=== PATIENT | female | born 1965 | race Caucasian/White ===

== ENCOUNTER 2017-07-04 20:44 | Emergency (ER) | payer OTHER ==
[~2017-07-04] VITALS: Ht 170.2 cm; Wt 56.8 kg
[~2017-07-04 20:44] MED LIST: LACT1CAP26 PO; ONDA4TAB12 PO; PANT-47 PO; PHEN-873 PO; VENL150T3 PO
[2017-07-04 20:50] VITALS: BP 125/81
[2017-07-04 21:07] LABS: CLARITY,URINE CLOUDY (Clear); COLOR,URINE AMBER (Yellow); GLUCOSE, URINE NEGATIVE (Neg); KETONES,URINE TRACE mg/dl (Neg); LEUKOCYTE ESTERASE ,URINE SMALL (Neg); NITRITES, URINE POSITIVE (Neg); OCCULT BLOOD,URINE TRACE-LYSED (Neg); PROTEIN,URINE NEGATIVE (Neg)
[2017-07-04 21:12] LABS: UA COLLECTION TYPE CLN CATCH MIDSTREAM
[2017-07-04 21:18] LABS: BACTERIA,URINE 4+ /HPF (Neg); MUCUS STRANDS NONE SEEN /LPF (Neg); RBC,URINE NONE SEEN /HPF (0-2); SQUAMOUS EPITHELIAL CELL,UR FEW /LPF (FEW); WBC,URINE 20-30 /HPF (0-4)
[2017-07-04] MEDS ORDERED: CEPH-571 PO (21:25)
[2017-07-04] MEDS ORDERED: DOXY100C43 PO (21:25)
== END 2017-07-04 21:30 | disposition home or self-care (01) ==
LOC: ER 20:44
DX: N39.0 Urinary tract infection, site not specified (principal); M81.0 Age-related osteoporosis without current pathological fracture; Z98.51 Tubal ligation status; Z91.018 Allergy to other foods; Z88.1 Allergy status to other antibiotic agents; Z95.1 Presence of aortocoronary bypass graft
CPT/HCPCS: 81001; 87077; 87088; 87186; 99284

== ENCOUNTER 2018-11-11 11:09 | Emergency (ER) | payer MEDICAID ==
[~2018-11-11] VITALS: Ht 167.6 cm; Wt 53.0 kg
[~2018-11-11 11:09] MED LIST changes: +CEPH-571 PO; +PHEN-786 PO; -PHEN-873 PO; +TRAM50TA2 PO
[2018-11-11] MEDS ORDERED: HYDROcodone/acetaminophen 5mg/325mg tablet PO STA (11:33)
[2018-11-11] MEDS ORDERED: ketorolac tromethamine 15mg/ml inj. IM ONE (12:10)
[2018-11-11] MEDS ORDERED: METH-360 PO (13:35)
[2018-11-11] MEDS ORDERED: HYDR-4353 PO (13:35)
[2018-11-11 14:11] VITALS: BP 110/68
== END 2018-11-11 14:11 | disposition home or self-care (01) ==
LOC: ER 11:10
DX: M25.511 Pain in right shoulder (principal); R20.0 Anesthesia of skin; F17.210 Nicotine dependence, cigarettes, uncomplicated; Z98.51 Tubal ligation status; Z98.890 Other specified postprocedural states; Z88.8 Allergy status to other drugs, medicaments and biological substances; Z79.2 Long term (current) use of antibiotics; Z79.899 Other long term (current) drug therapy
CPT/HCPCS: 73010; 96372; 99283; J1885

== ENCOUNTER 2019-10-30 07:28 | Emergency (ER) | payer MEDICAID ==
[~2019-10-30] VITALS: Ht 170.2 cm; Wt 54.4 kg
[~2019-10-30 07:28] MED LIST changes: +METH-360 PO; -TRAM50TA2 PO
[2019-10-30] MEDS ORDERED: LORazepam 2 mg/ml vial IV ONE (09:00)
[2019-10-30] MEDS ORDERED: famotidine/PF 10 mg/ml inj IV ONE (09:00)
[2019-10-30] MEDS ORDERED: normal saline 1000ML IV soln IVB ONE (09:00)
[2019-10-30] MEDS ORDERED: ondansetron/PF 4mg/2ml inj IV ONE (09:00)
[2019-10-30] MEDS ORDERED: folic acid 1mg/0.2ml inj IV ONE (09:00)
[2019-10-30] MEDS ORDERED: thiamine 100mg/ml 2ml inj. IV ONE (09:00)
[2019-10-30] MEDS ORDERED: dextrose 50%-water 50ml dispensing syringe IV ONE (09:13)
--- NOTE | 2019-10-30 09:20 | NUR ---
Patient given orange juice and sandwich for low blood glucose of 38 mg/dL.
[2019-10-30 09:23] LABS: BASOPHILS # (AUTO) 0.1 X10'3 (0-0.2); BASOPHILS % (AUTO) 0.8 % (0-1); EOSINOPHILS % (AUTO) 0.2 % (0-6); HEMATOCRIT 46.7 % (35.0-45.0); HEMOGLOBIN 15.7 g/dl (12.0-16.0); LYMPHOCYTES # (AUTO) 1.3 X10'3 (1.1-4.8); LYMPHOCYTES % (AUTO) 14.9 % (21-51); MEAN CORPUSCULAR HEMOGLOBIN 32.6 PG (27.0-31.0); MEAN CORPUSCULAR HGB CONC 33.5 g/dL (33.0-36.5); MEAN CORPUSCULAR VOLUME 97.3 FL (78-98); MEAN PLATELET VOLUME 9.4 FL (7.4-10.4); MONOCYTES # (AUTO) 0.6 X10'3 (0-0.9); MONOCYTES % (AUTO) 7.1 % (2-12); NEUTROPHILS # (AUTO) 6.7 X10'3 (1.8-7.7); PLATELET COUNT 143 X10'3 (140-440); RED CELL DISTRIBUTION WIDTH 14.8 % (11.5-14.5); WHITE BLOOD COUNT 8.7 X10'3 (4.5-11.0)
[2019-10-30 09:32] LABS: ALANINE AMINOTRANSFERASE 59 U/L (12-78); ALBUMIN/GLOBULIN RATIO 1.4 (1.1-1.5); ALKALINE PHOSPHATASE 65 IU/L (46-116); ANION GAP 20 (8-16); ASPARTATE AMINO TRANSFERASE 83 U/L (10-37); BILIRUBIN,TOTAL 0.4 MG/DL (0.1-1.0); BLOOD UREA NITROGEN 10 MG/DL (7-18); BUN/CREATININE RATIO 12.3 (6.6-38.0); CALCIUM 8.9 MG/DL (8.5-10.1); CHLORIDE 104 MMOL/L (99-107); CREATININE 0.81 MG/DL (0.40-0.90); ETHANOL 0.175 GM/DL (0.0-0.010); POTASSIUM 3.3 MMOL/L (3.5-5.1); SODIUM 144 MMOL/L (135-145); TOTAL CARBON DIOXIDE 20.3 MMOL/L (24-32); TOTAL PROTEIN 6.9 G/DL (6.4-8.2); eGFR 73 ML/MIN
[2019-10-30 09:39] LABS: GLUCOSE 50 MG/DL (70-104)
[2019-10-30] MEDS ORDERED: magnesium 2GM in 50ml NS 50 ML IV ONE (09:45)
[2019-10-30] MEDS ORDERED: potassium Cl 10 mEq/100mL bag IV ONE (09:45)
[2019-10-30] MEDS ORDERED: LORA-269 PO (09:50)
[2019-10-30] MEDS ORDERED: GABA300C PO (09:50)
[2019-10-30 11:21] VITALS: BP 130/73
== END 2019-10-30 11:22 | disposition home or self-care (01) ==
LOC: ER 07:29
DX: F10.129 Alcohol abuse with intoxication, unspecified (principal); E87.6 Hypokalemia; E16.2 Hypoglycemia, unspecified; M81.0 Age-related osteoporosis without current pathological fracture; Z98.51 Tubal ligation status; Z90.89 Acquired absence of other organs; Z98.890 Other specified postprocedural states; Z88.8 Allergy status to other drugs, medicaments and biological substances; Z79.899 Other long term (current) drug therapy
CPT/HCPCS: 36415; 80053; 80320; 82948; 85025; 85610; 93005; 96365; 96368; 96375; 99284; J2060; J2405; J3411; J3475; J3480; J3490; J7030

== ENCOUNTER 2020-06-27 09:42 | Outpatient (CLI) | payer MEDICAID ==
[~2020-06-27] VITALS: Ht 170.2 cm; Wt 54.4 kg
[~2020-06-27 09:42] MED LIST changes: +GABA300C PO; +LORA-269 PO
[2020-06-27] MEDS ORDERED: MELA10TA PO (10:44)
[2020-06-27] MEDS ORDERED: METH-360 PO (10:44)
[2020-06-27] MEDS ORDERED: SERT50TA PO (10:44)
[2020-06-27] MEDS ORDERED: ASCO500C18 PO (10:44)
[2020-06-27 11:02] LABS: BASOPHILS % (AUTO) 0.9 % (0-1); EOSINOPHILS # (AUTO) 0.1 X10'3 (0-0.9); EOSINOPHILS % (AUTO) 1.2 % (0-6); LYMPHOCYTES # (AUTO) 1.9 X10'3 (1.1-4.8); LYMPHOCYTES % (AUTO) 34.1 % (21-51); MEAN CORPUSCULAR HEMOGLOBIN 32.1 PG (27.0-31.0); MEAN CORPUSCULAR HGB CONC 33.3 g/dL (33.0-36.5); MEAN CORPUSCULAR VOLUME 96.5 FL (78-98); MEAN PLATELET VOLUME 10.2 FL (7.4-10.4); MONOCYTES # (AUTO) 0.4 X10'3 (0-0.9); MONOCYTES % (AUTO) 6.9 % (2-12); NEUTROPHILS # (AUTO) 3.1 X10'3 (1.8-7.7); NEUTROPHILS % (AUTO) 56.9 % (42-75); PRE OP HEMATOCRIT 46.5 % (35.0-45.0); PRE OP HEMOGLOBIN 15.5 g/dL (12.0-16.0); PRE OP PLATELET COUNT 132 X10'3 (140-440); RED BLOOD COUNT 4.82 X10'6 (4.20-5.60); RED CELL DISTRIBUTION WIDTH 14.4 % (11.5-14.5)
[2020-06-27 11:21] LABS: ALBUMIN/GLOBULIN RATIO 1.2 (1.1-1.5); ALKALINE PHOSPHATASE 56 IU/L (46-116); BLOOD UREA NITROGEN 8 MG/DL (7-18); BUN/CREATININE RATIO 12.3 (6.6-38.0); CHLORIDE 106 MMOL/L (99-107); CREATININE 0.65 MG/DL (0.40-0.90); PRE OP ALT 45 U/L (30-65); PRE OP ANION GAP 12 (8-16); PRE OP AST 60 U/L (10-37); PRE OP BILIRUB, TOTAL 0.4 MG/DL (0.0-1.0); PRE OP GLUCOSE 74 MG/DL (70-104); PRE OP POTASSIUM 3.4 MMOL/L (3.4-5.1); PRE OP SODIUM 146 MMOL/L (135-145); TOTAL CARBON DIOXIDE 28.5 MMOL/L (24-32); TOTAL PROTEIN 7.3 G/DL (6.4-8.2); eGFR > 90 ML/MIN
[2020-07-02] MEDS ORDERED: ringers solution, lacted 1,000 ML IV SCH (05:00)
[2020-07-02] MEDS ORDERED: famotidine 20mg tablet PO ONE (05:30)
[2020-07-02] MEDS ORDERED: ceFOXitin 2GM-NS 100mL ADDvant 100 ML IV ONE (05:30)
[2020-07-02] MEDS ORDERED: LIDOcaine 1% 30ml preserv. free vial ONE (06:44)
[2020-07-02] MEDS ORDERED: BUPIVAcaine/PF 2.5 mg/ml (0.25%) 30ml vial ONE (06:44)
== END 2020-06-27 23:59 | disposition home or self-care (01) ==
LOC: PRE-OP 09:42 → EDSTATUS 07-02 12:30
PROVIDERS: ATTEND Surgery
DX: Z01.812 Encounter for preprocedural laboratory examination (principal); Z20.828 Contact with and (suspected) exposure to other viral communicable diseases
CPT/HCPCS: 36415; 80053; 85025; 86885; 86900; 86901; 87081; 87635; 93005; J0694; J2001; J3490; J7120

== ENCOUNTER 2020-07-02 10:04 | Inpatient (IN) | payer MEDICAID ==
[~2020-07-02] VITALS: Ht 170.2 cm; Wt 49.8 kg
[~2020-07-02 10:04] MED LIST changes: +ASCO500C18 PO; -CEPH-571 PO; -GABA300C PO; -LACT1CAP26 PO; -LORA-269 PO; +MELA10TA PO; -ONDA4TAB12 PO; -PANT-47 PO; -PHEN-786 PO; +SERT50TA PO; -VENL150T3 PO
[2020-07-02] MEDS ORDERED: normal saline 1000ML IV soln IVB ONE (10:20)
[2020-07-02] MEDS ORDERED: ondansetron/PF 4mg/2ml inj IV ONE (10:20)
[2020-07-02] MEDS ORDERED: gabapentin 300mg capsule PO ONE ×2 (10:20→11:45)
[2020-07-02] MEDS ORDERED: pantoprazole 40 MG vial IV ONE (10:20)
[2020-07-02 10:42] LABS: BASOPHILS % (AUTO) 0.6 % (0-1); EOSINOPHILS % (AUTO) 0.1 % (0-6); HEMATOCRIT 46.6 % (35.0-45.0); HEMOGLOBIN 15.9 g/dl (12.0-16.0); LYMPHOCYTES # (AUTO) 1.3 X10'3 (1.1-4.8); LYMPHOCYTES % (AUTO) 18.7 % (21-51); MEAN CORPUSCULAR HEMOGLOBIN 32.2 PG (27.0-31.0); MEAN CORPUSCULAR HGB CONC 34.1 g/dL (33.0-36.5); MEAN CORPUSCULAR VOLUME 94.5 FL (78-98); MEAN PLATELET VOLUME 10.1 FL (7.4-10.4); MONOCYTES # (AUTO) 0.4 X10'3 (0-0.9); MONOCYTES % (AUTO) 6.5 % (2-12); NEUTROPHILS % (AUTO) 74.1 % (42-75); PLATELET COUNT 130 X10'3 (140-440); RED BLOOD COUNT 4.93 X10'6 (4.20-5.60); RED CELL DISTRIBUTION WIDTH 14.1 % (11.5-14.5); WHITE BLOOD COUNT 6.7 X10'3 (4.5-11.0)
[2020-07-02 10:56] LABS: PARTIAL THROMBOPLASTIN TIME 26 SECONDS (22-32)
[2020-07-02 11:05] LABS: ALANINE AMINOTRANSFERASE 42 U/L (12-78); ALBUMIN 4.4 G/DL (3.4-5.0); ALBUMIN/GLOBULIN RATIO 1.4 (1.1-1.5); ALKALINE PHOSPHATASE 62 IU/L (46-116); AMYLASE 146 U/L (25-115); ANION GAP 18 (8-16); ASPARTATE AMINO TRANSFERASE 45 U/L (10-37); BILIRUBIN,TOTAL 0.9 MG/DL (0.1-1.0); BLOOD UREA NITROGEN 10 MG/DL (7-18); BUN/CREATININE RATIO 12.3 (6.6-38.0); CALCIUM 9.7 MG/DL (8.5-10.1); CHLORIDE 102 MMOL/L (99-107); CREATININE 0.81 MG/DL (0.40-0.90); ETHANOL < 0.010 GM/DL (0.0-0.010); GLUCOSE 104 MG/DL (70-104); MAGNESIUM 1.1 MG/DL (1.5-2.4); POTASSIUM 3.4 MMOL/L (3.5-5.1); SODIUM 142 MMOL/L (135-145); TOTAL CARBON DIOXIDE 22.5 MMOL/L (24-32); TOTAL PROTEIN 7.6 G/DL (6.4-8.2); eGFR 73 ML/MIN
[2020-07-02] MEDS ORDERED: cloNIDine 0.1 mg tablet PO ONE (11:20)
[2020-07-02] MEDS ORDERED: magnesium 2GM in 50ml NS 50 ML IV PRN (11:45)
[2020-07-02] MEDS ORDERED: metoclopramide 5 mg/ml inj IV PRN (11:45)
[2020-07-02] MEDS ORDERED: potassium Cl 40MEQ/1/2NS 520ml 520 ML IV PRN ×2 (11:45)
[2020-07-02] MEDS ORDERED: LORazepam 2 mg/ml vial IV PRN (11:45)
[2020-07-02] MEDS ORDERED: magnesium 4gm in 100ml NS 100 ML IV PRN (11:45)
[2020-07-02] MEDS ORDERED: magnesium hydroxide 30ml (MOM) UD suspension PO PRN (11:45)
[2020-07-02] MEDS ORDERED: thiamine inj. 100 MG in normal saline 100ml IV soln 100 ML IV ONE (11:45)
[2020-07-02] MEDS ORDERED: potassium Cl 20 mEq SR tablet PO PRN (11:45)
[2020-07-02] MEDS ORDERED: HYDROcodone/acetaminophen 10/325mg tab PO PRN (11:45)
[2020-07-02] MEDS ORDERED: haloperidol 5mg tablet PO PRN (11:45)
[2020-07-02] MEDS ORDERED: haloperidol lactate 5mg/ml inj IM PRN (11:45)
[2020-07-02] MEDS ORDERED: mag hydrox/Alum hydrox/simeth 30ml oral suspension PO PRN (11:45)
[2020-07-02] MEDS ORDERED: HYDROcodone/acetaminophen 5mg/325mg tablet PO PRN (11:45)
[2020-07-02] MEDS ORDERED: ondansetron/PF 4mg/2ml inj IV PRN (11:45)
[2020-07-02] MEDS ORDERED: acetaminophen 325mg tablet PO PRN ×2 (11:45)
[2020-07-02] MEDS ORDERED: nicotine 14mg patch - 24hr TD ONE (12:40)
[2020-07-02] MEDS ORDERED: pantoprazole 40 MG vial IV SCH (12:40)
[2020-07-02] MEDS ORDERED: gabapentin 300mg capsule PO SCH (13:00)
[2020-07-02] MEDS ORDERED: ATOR20TA66 PO (13:26)
[2020-07-02] MEDS: potassium Cl 20 mEq SR tablet PO PRN ×2 (14:28→18:56)
--- NOTE | 2020-07-02 16:00 | NUR ---
Patient in room [facility]. I have received report from Rad WIGGINS and had the opportunity to ask questions and assume patient care.
[2020-07-02 16:08] VITALS: BP 108/73
--- NOTE | 2020-07-02 18:26 | NUR ---
Problems reprioritized. Patient report given, questions answered & plan of care reviewed with Taryn WIGGINS.
--- NOTE | 2020-07-02 18:27 | NUR ---
Patient in room [facility]. I have received report from ROSALIE Holden and had the opportunity to ask questions and assume patient care.
[2020-07-02] MEDS: LORazepam 1 MG tablet PO PRN (18:56)
[2020-07-02] MEDS: magnesium Cl slow-release 64mg tablet PO PRN (18:56)
[2020-07-02 19:00] VITALS: BP 115/67
[2020-07-02] MEDS: K and/or MAG REPLACEMENT MC SCH (20:00)
[2020-07-02] MEDS: gabapentin 300mg capsule PO SCH (20:41)
[2020-07-02] MEDS: pantoprazole 40 MG vial IV SCH (20:42)
[2020-07-02] MEDS: Melatonin 3mg tablet PO SCH (20:42)
[2020-07-03] VITALS: BP 105/65
[2020-07-03] MEDS: potassium Cl 20 mEq SR tablet PO PRN (03:02)
[2020-07-03] MEDS: magnesium Cl slow-release 64mg tablet PO PRN (03:02)
--- NOTE | 2020-07-03 06:42 | NUR ---
Problems reprioritized. Patient report given, questions answered & plan of care reviewed with ROSALIE Mcconnell.
[2020-07-03 07:31] LABS: BASOPHILS % (AUTO) 0.4 % (0-1); EOSINOPHILS # (AUTO) 0.1 X10'3 (0-0.9); EOSINOPHILS % (AUTO) 2.1 % (0-6); HEMATOCRIT 40.1 % (35.0-45.0); HEMOGLOBIN 13.5 g/dl (12.0-16.0); LYMPHOCYTES # (AUTO) 1.2 X10'3 (1.1-4.8); LYMPHOCYTES % (AUTO) 30.3 % (21-51); MEAN CORPUSCULAR HEMOGLOBIN 32.3 PG (27.0-31.0); MEAN CORPUSCULAR HGB CONC 33.6 g/dL (33.0-36.5); MEAN CORPUSCULAR VOLUME 96.3 FL (78-98); MEAN PLATELET VOLUME 10.2 FL (7.4-10.4); MONOCYTES # (AUTO) 0.3 X10'3 (0-0.9); MONOCYTES % (AUTO) 8.8 % (2-12); NEUTROPHILS # (AUTO) 2.2 X10'3 (1.8-7.7); NEUTROPHILS % (AUTO) 58.4 % (42-75); PLATELET COUNT 97 X10'3 (140-440); RED BLOOD COUNT 4.16 X10'6 (4.20-5.60); RED CELL DISTRIBUTION WIDTH 14.1 % (11.5-14.5); WHITE BLOOD COUNT 3.8 X10'3 (4.5-11.0)
[2020-07-03 07:58] LABS: ALANINE AMINOTRANSFERASE 33 U/L (12-78); ALBUMIN 3.3 G/DL (3.4-5.0); ALBUMIN/GLOBULIN RATIO 1.2 (1.1-1.5); ALKALINE PHOSPHATASE 50 IU/L (46-116); ANION GAP 10 (8-16); ASPARTATE AMINO TRANSFERASE 36 U/L (10-37); BILIRUBIN,TOTAL 0.8 MG/DL (0.1-1.0); BLOOD UREA NITROGEN 11 MG/DL (7-18); BUN/CREATININE RATIO 16.9 (6.6-38.0); CALCIUM 8.4 MG/DL (8.5-10.1); CHLORIDE 107 MMOL/L (99-107); CREATININE 0.65 MG/DL (0.40-0.90); GLUCOSE 80 MG/DL (70-104); MAGNESIUM 1.8 MG/DL (1.5-2.4); PHOSPHORUS 2.3 MG/DL (2.3-4.5); POTASSIUM 4.2 MMOL/L (3.5-5.1); SODIUM 144 MMOL/L (135-145); TOTAL CARBON DIOXIDE 27.3 MMOL/L (24-32); TOTAL PROTEIN 6.1 G/DL (6.4-8.2); eGFR > 90 ML/MIN
[2020-07-03 08:00] VITALS: BP 103/67
[2020-07-03] MEDS: K and/or MAG REPLACEMENT MC SCH ×2 (08:00→20:00)
[2020-07-03] MEDS: folic acid 1mg/0.2ml inj IV SCH (08:00)
[2020-07-03] MEDS: thiamine inj. 100 MG, MVI, adult No.4 with vit. K 10 ML in dextrose 5% water 500ml 500 ML IV SCH ×3 (08:00)
[2020-07-03] MEDS: sertraline 50mg tablet PO SCH (09:41)
[2020-07-03] MEDS: thiamine 100mg tablet PO SCH (09:41)
[2020-07-03] MEDS: folic acid 1mg tablet PO SCH (09:42)
[2020-07-03] MEDS: sertraline 25mg tablet PO SCH (09:42)
[2020-07-03] MEDS: multivitamins, therapeutics tablet PO SCH (09:42)
[2020-07-03] MEDS: gabapentin 300mg capsule PO SCH ×3 (09:43→20:50)
[2020-07-03] MEDS: pantoprazole 40 MG vial IV SCH ×2 (09:43→20:50)
[2020-07-03] MEDS: nicotine 14mg patch - 24hr TD SCH (09:46)
[2020-07-03] MEDS: LORazepam 1 MG tablet PO PRN ×3 (09:53→22:14)
[2020-07-03] MEDS: normal saline 1000ml 1,000 ML IV SCH ×2 (10:35→20:50)
[2020-07-03 11:00] VITALS: BP 114/73
--- NOTE | 2020-07-03 11:21 | NUR ---
Malnutrition consult: Pt reports 2-13 lb wt loss with decreased appetite per malnutrition risk screen with RN. Pt with a low BMI however current documented wt isn't scaled. Pt chronically with a low weight per records. Pt on a clear liquid diet documented with 100% PO intake first meal. No documented decrease in muscle strength or edema per physical assessment. Pt appears WDWN per H&P. Pt currently lacks a minimum of two criteria for malnutrition. Pt with EtOH hx, currently receiving routine Thiamine, Folic acid, and MVI. Will continue to follow and monitor need for nutrition intervention. Addendum: 07/03/20 at [address] Amended: Links added.
--- NOTE | 2020-07-03 18:50 | NUR ---
Patient in room [facility]. I have received report from ROSALIE Mcconnell and had the opportunity to ask questions and assume patient care.
--- NOTE | 2020-07-03 18:50 | NUR ---
GAVE REPORT TO RENETTA Spain RN.
[2020-07-03 20:24] VITALS: BP 116/62
[2020-07-03] MEDS: Melatonin 3mg tablet PO SCH (22:10)
[2020-07-03 23:40] VITALS: BP 110/68
[2020-07-04] VITALS (17 sets, daily range): BP systolic 101–148; BP diastolic 59–98
[2020-07-04] MEDS: normal saline 1000ml 1,000 ML IV SCH ×2 (06:15→16:15)
--- NOTE | 2020-07-04 06:17 | NUR ---
Patient in room [facility]. I have received report from ROSALIE JACKSON and had the opportunity to ask questions and assume patient care.
--- NOTE | 2020-07-04 06:29 | NUR ---
Problems reprioritized. Patient report given, questions answered & plan of care reviewed with ROSALIE Medrano.
[2020-07-04 07:18] LABS: BASOPHILS % (AUTO) 0.6 % (0-1); EOSINOPHILS # (AUTO) 0.1 X10'3 (0-0.9); EOSINOPHILS % (AUTO) 3.7 % (0-6); HEMATOCRIT 38.8 % (35.0-45.0); HEMOGLOBIN 12.8 g/dl (12.0-16.0); LYMPHOCYTES # (AUTO) 1.3 X10'3 (1.1-4.8); LYMPHOCYTES % (AUTO) 42.8 % (21-51); MEAN CORPUSCULAR HEMOGLOBIN 32.2 PG (27.0-31.0); MEAN CORPUSCULAR VOLUME 97.5 FL (78-98); MEAN PLATELET VOLUME 10.3 FL (7.4-10.4); MONOCYTES # (AUTO) 0.3 X10'3 (0-0.9); MONOCYTES % (AUTO) 8.8 % (2-12); NEUTROPHILS # (AUTO) 1.3 X10'3 (1.8-7.7); NEUTROPHILS % (AUTO) 44.1 % (42-75); PLATELET COUNT 85 X10'3 (140-440); RED BLOOD COUNT 3.98 X10'6 (4.20-5.60); RED CELL DISTRIBUTION WIDTH 13.8 % (11.5-14.5)
[2020-07-04 07:23] LABS: PARTIAL THROMBOPLASTIN TIME 28 SECONDS (22-32)
[2020-07-04 07:51] LABS: ALANINE AMINOTRANSFERASE 39 U/L (12-78); ALBUMIN 2.8 G/DL (3.4-5.0); ALBUMIN/GLOBULIN RATIO 1.1 (1.1-1.5); ALKALINE PHOSPHATASE 42 IU/L (46-116); ANION GAP 10 (8-16); ASPARTATE AMINO TRANSFERASE 42 U/L (10-37); BILIRUBIN,TOTAL 0.5 MG/DL (0.1-1.0); BLOOD UREA NITROGEN 6 MG/DL (7-18); BUN/CREATININE RATIO 9.8 (6.6-38.0); CHLORIDE 109 MMOL/L (99-107); CREATININE 0.61 MG/DL (0.40-0.90); GLUCOSE 85 MG/DL (70-104); MAGNESIUM 1.9 MG/DL (1.5-2.4); PHOSPHORUS 2.4 MG/DL (2.3-4.5); POTASSIUM 3.8 MMOL/L (3.5-5.1); SODIUM 143 MMOL/L (135-145); TOTAL CARBON DIOXIDE 24.4 MMOL/L (24-32); TOTAL PROTEIN 5.3 G/DL (6.4-8.2); eGFR > 90 ML/MIN
[2020-07-04] MEDS: thiamine 100mg tablet PO SCH (08:00)
[2020-07-04] MEDS: thiamine inj. 100 MG, MVI, adult No.4 with vit. K 10 ML in dextrose 5% water 500ml 500 ML IV SCH ×3 (08:00)
[2020-07-04] MEDS: multivitamins, therapeutics tablet PO SCH (08:00)
[2020-07-04] MEDS: K and/or MAG REPLACEMENT MC SCH ×2 (08:00→20:00)
[2020-07-04] MEDS: folic acid 1mg/0.2ml inj IV SCH (08:00)
[2020-07-04] MEDS: folic acid 1mg tablet PO SCH (08:00)
[2020-07-04 09:50] LABS: PLATELET ESTIMATE DECREASED; TOTAL CELLS COUNTED 100
[2020-07-04] MEDS: sertraline 25mg tablet PO SCH (10:06)
[2020-07-04] MEDS: sertraline 50mg tablet PO SCH (10:06)
[2020-07-04] MEDS: pantoprazole 40 MG vial IV SCH ×2 (10:07→20:00)
[2020-07-04] MEDS: gabapentin 300mg capsule PO SCH ×3 (10:07→21:47)
[2020-07-04] MEDS: nicotine 14mg patch - 24hr TD SCH (12:52)
[2020-07-04] MEDS ORDERED: morphine 2 MG/ML inj. syringe IV PRN (13:35)
[2020-07-04] MEDS ORDERED: ondansetron/PF 4mg/2ml inj IV PRN ×2 (13:35→18:30)
[2020-07-04] MEDS ORDERED: hydrALAZINE 20mg/ml inj. IV PRN (13:35)
[2020-07-04] MEDS ORDERED: labetalol 20mg/4ml (5mg/ml) syringe IV PRN (13:35)
[2020-07-04] MEDS ORDERED: fentaNYL/PF 50MCG/1 ML 2ML syringe IV PRN ×2 (13:35)
[2020-07-04] MEDS ORDERED: morphine 4 MG/ML inj SYRINge IV PRN (13:35)
[2020-07-04] MEDS ORDERED: ringers solution, lacted 1,000 ML IV SCH (13:35)
[2020-07-04] MEDS ORDERED: sevoflurane 250ml liquid IH ONE (15:33)
[2020-07-04] MEDS ORDERED: rocuronium 10mg/ml inj IV ONE ×2 (15:33→15:36)
[2020-07-04] MEDS ORDERED: dexamethasone sod phosphate 10mg/ml inj ONE (15:33)
[2020-07-04] MEDS ORDERED: dexmedetomidin/NS 400mcg/100mL bag IV ONE (15:33)
[2020-07-04] MEDS ORDERED: BUPIVAcaine/PF 2.5 mg/ml (0.25%) 30ml vial ONE (15:34)
[2020-07-04] MEDS ORDERED: LIDOcaine 1% 30ml preserv. free vial ONE (15:34)
[2020-07-04] MEDS ORDERED: LIDOcaine 2% (20mg/ml) 5ml vial ONE (15:36)
[2020-07-04] MEDS ORDERED: midazolam 2 mg/2 ml injection ONE (15:36)
[2020-07-04] MEDS ORDERED: propofol inj 20 ML IV ONE (15:36)
[2020-07-04] MEDS ORDERED: ondansetron/PF 4mg/2ml inj ONE (15:36)
[2020-07-04] MEDS ORDERED: fentaNYL/PF 50MCG/1 ML 2ML syringe ONE ×2 (15:36→16:28)
[2020-07-04] MEDS ORDERED: ceFOXitin 1000 MG inj ONE ×2 (15:53)
[2020-07-04] MEDS ORDERED: INDOCYANINE GREEN 25 MG/10 ML VIAL IV ONE (16:21)
[2020-07-04] MEDS ORDERED: glycopyrrolate 0.2mg/ml inj ONE (18:13)
[2020-07-04] MEDS ORDERED: neostigmine methylsulfate 1 MG/ML 10ml vial ONE (18:13)
--- NOTE | 2020-07-04 18:37 | NUR ---
Received from OR via SURGICAL BED , accompanied by Anesthesiologist JASPREET and report given by Anesthesiolgist. PATIENT WITH 4 LAP SITES DRESSED AND ARE ALL CDI. VSS. SCDS DONNED 10L MASK ON WITH 100% SATURATIONS. VILLEDA CATHETER PRESNT WITH CLEAR YELLOW URINE IN [facility]. Addendum: 07/04/20 at 1847 by Mateo Eldridge RN, RN Amended: Links added.
--- NOTE | 2020-07-04 19:01 | NUR ---
Problems reprioritized. Patient report given, questions answered & plan of care reviewed with ROSALIE MURPHY.
--- NOTE | 2020-07-04 19:37 | NUR ---
Report called to receiving nurse. Transferred via SURGICAL BED WITH NO Belongings . Special Issues communicated to receiving nurse KATHERINE WIGGINS. VSS. BED LOW, ASSESSED ABDOMINAL DRESSINGS THAT WERE ALL CDI. ONE WITH SHADOWING OF BLOOD PRESENT BUT CONTAINED WITHIN DRESSING. PATIENT WITH BED LOW AND CALL LIGHT AVAILABLE. 3 RAILS UP FOR SAFETY. Addendum: 07/04/20 at 1956 by Mateo Eldridge RN, RN Amended: Links added.
[2020-07-04] MEDS: Melatonin 3mg tablet PO SCH (21:47)
[2020-07-04] MEDS: Potassium Cl inj 20 MEQ in ringers solution, lacted 1,000 ML IV SCH (22:42)
[2020-07-05] VITALS: BP 148/90
[2020-07-05] MEDS ORDERED: ceFOXitin inj 1 MG in normal saline 100ml IV soln 100 ML IV SCH ×2
--- NOTE | 2020-07-05 00:33 | NUR ---
Call out to Dr. Bolanos, advised patient is complaining of pain after po pain medication. Rec'd new order for morphine 3mg IV Q4 PRN, also advise Dr galicia shadowing noted to dressing, no new orders in regards to dressing
[2020-07-05] MEDS: morphine 2 MG/ML inj. syringe IV PRN ×3 (01:36→21:05)
[2020-07-05] MEDS: normal saline 1000ml 1,000 ML IV SCH ×3 (02:15→22:15)
[2020-07-05 02:30] VITALS: BP 102/65
[2020-07-05] MEDS: Potassium Cl inj 20 MEQ in ringers solution, lacted 1,000 ML IV SCH ×3 (02:35→18:45)
[2020-07-05 07:24] LABS: BASOPHILS % (AUTO) 0.1 % (0-1); EOSINOPHILS % (AUTO) 0 % (0-6); HEMOGLOBIN 12.1 g/dl (12.0-16.0); LYMPHOCYTES # (AUTO) 0.3 X10'3 (1.1-4.8); LYMPHOCYTES % (AUTO) 5.4 % (21-51); MEAN CORPUSCULAR HEMOGLOBIN 32.5 PG (27.0-31.0); MEAN CORPUSCULAR HGB CONC 33.7 g/dL (33.0-36.5); MEAN CORPUSCULAR VOLUME 96.6 FL (78-98); MEAN PLATELET VOLUME 9.7 FL (7.4-10.4); MONOCYTES # (AUTO) 0.4 X10'3 (0-0.9); MONOCYTES % (AUTO) 6.1 % (2-12); NEUTROPHILS # (AUTO) 5.5 X10'3 (1.8-7.7); NEUTROPHILS % (AUTO) 88.4 % (42-75); PLATELET COUNT 81 X10'3 (140-440); RED BLOOD COUNT 3.73 X10'6 (4.20-5.60); RED CELL DISTRIBUTION WIDTH 13.3 % (11.5-14.5); WHITE BLOOD COUNT 6.3 X10'3 (4.5-11.0)
[2020-07-05 07:46] LABS: ALANINE AMINOTRANSFERASE 38 U/L (12-78); ALBUMIN 2.9 G/DL (3.4-5.0); ALBUMIN/GLOBULIN RATIO 1.1 (1.1-1.5); ALKALINE PHOSPHATASE 40 IU/L (46-116); ANION GAP 8 (8-16); ASPARTATE AMINO TRANSFERASE 36 U/L (10-37); BILIRUBIN,TOTAL 0.5 MG/DL (0.1-1.0); BLOOD UREA NITROGEN 7 MG/DL (7-18); BUN/CREATININE RATIO 10.9 (6.6-38.0); CALCIUM 7.4 MG/DL (8.5-10.1); CHLORIDE 104 MMOL/L (99-107); CREATININE 0.64 MG/DL (0.40-0.90); GLUCOSE 116 MG/DL (70-104); MAGNESIUM 1.1 MG/DL (1.5-2.4); PHOSPHORUS 2.6 MG/DL (2.3-4.5); POTASSIUM 4.4 MMOL/L (3.5-5.1); SODIUM 138 MMOL/L (135-145); TOTAL CARBON DIOXIDE 26.1 MMOL/L (24-32); TOTAL PROTEIN 5.6 G/DL (6.4-8.2); eGFR > 90 ML/MIN
[2020-07-05 08:00] VITALS: BP 97/40
[2020-07-05] MEDS ORDERED: ceFOXitin inj 1,000 MG in normal saline 100ml IV soln 100 ML IV SCH (08:00)
[2020-07-05] MEDS: K and/or MAG REPLACEMENT MC SCH ×2 (08:00→20:00)
[2020-07-05] MEDS: thiamine inj. 100 MG, MVI, adult No.4 with vit. K 10 ML in dextrose 5% water 500ml 500 ML IV SCH ×3 (08:27)
[2020-07-05] MEDS: sertraline 50mg tablet PO SCH (08:36)
[2020-07-05] MEDS: sertraline 25mg tablet PO SCH (08:36)
[2020-07-05] MEDS: folic acid 1mg tablet PO SCH (08:37)
[2020-07-05] MEDS: thiamine 100mg tablet PO SCH (08:37)
[2020-07-05] MEDS: multivitamins, therapeutics tablet PO SCH (08:37)
[2020-07-05] MEDS: atorvastatin 20mg tablet PO SCH (08:37)
[2020-07-05] MEDS: gabapentin 300mg capsule PO SCH ×3 (08:37→20:00)
[2020-07-05] MEDS: nicotine 14mg patch - 24hr TD SCH (08:39)
[2020-07-05] MEDS: pantoprazole 40 MG vial IV SCH (08:41)
[2020-07-05 11:00] VITALS: BP 93/54
[2020-07-05] MEDS: HYDROcodone/acetaminophen 10/325mg tab PO PRN (11:02)
[2020-07-05] MEDS ORDERED: benzocaine/menthol oral lozeng 1 EACH BOX MM PRN (11:25)
[2020-07-05 18:00] VITALS: BP 107/63
--- NOTE | 2020-07-05 18:48 | NUR ---
Problems reprioritized. Patient report given, questions answered & plan of care reviewed with ROSALIE Sterling. Patient pain well controlled, ambulating ad karlie. Billy cath D/C'd this morning pt voiding without difficulty. Bowels active no flatus or BM. Tolerating CL diet well.
[2020-07-05] MEDS: pantoprazole 40mg Tablet.DR PO SCH (19:58)
[2020-07-05] MEDS: Melatonin 3mg tablet PO SCH (20:00)
[2020-07-06] VITALS: BP 106/56
[2020-07-06] MEDS: Potassium Cl inj 20 MEQ in ringers solution, lacted 1,000 ML IV SCH (05:43)
[2020-07-06 06:25] LABS: BASOPHILS % (AUTO) 0.2 % (0-1); EOSINOPHILS % (AUTO) 0.4 % (0-6); HEMATOCRIT 35.4 % (35.0-45.0); LYMPHOCYTES # (AUTO) 0.9 X10'3 (1.1-4.8); LYMPHOCYTES % (AUTO) 14.8 % (21-51); MEAN CORPUSCULAR HEMOGLOBIN 32.9 PG (27.0-31.0); MEAN CORPUSCULAR HGB CONC 33.7 g/dL (33.0-36.5); MEAN CORPUSCULAR VOLUME 97.5 FL (78-98); MEAN PLATELET VOLUME 10.8 FL (7.4-10.4); MONOCYTES # (AUTO) 0.5 X10'3 (0-0.9); MONOCYTES % (AUTO) 7.9 % (2-12); NEUTROPHILS # (AUTO) 4.9 X10'3 (1.8-7.7); NEUTROPHILS % (AUTO) 76.7 % (42-75); PLATELET COUNT 91 X10'3 (140-440); RED BLOOD COUNT 3.63 X10'6 (4.20-5.60); RED CELL DISTRIBUTION WIDTH 14.1 % (11.5-14.5); WHITE BLOOD COUNT 6.3 X10'3 (4.5-11.0)
--- NOTE | 2020-07-06 06:43 | NUR ---
Patient in room [facility]. I have received report from ROSALIE Sterling and had the opportunity to ask questions and assume patient care.
[2020-07-06 06:46] LABS: ALANINE AMINOTRANSFERASE 42 U/L (12-78); ALBUMIN/GLOBULIN RATIO 1.1 (1.1-1.5); ALKALINE PHOSPHATASE 46 IU/L (46-116); ANION GAP 3 (8-16); ASPARTATE AMINO TRANSFERASE 32 U/L (10-37); BILIRUBIN,TOTAL 0.6 MG/DL (0.1-1.0); BUN/CREATININE RATIO 3.8 (6.6-38.0); CHLORIDE 108 MMOL/L (99-107); CREATININE 0.79 MG/DL (0.40-0.90); GLUCOSE 99 MG/DL (70-104); MAGNESIUM 1.7 MG/DL (1.5-2.4); PHOSPHORUS 1.3 MG/DL (2.3-4.5); POTASSIUM 3.9 MMOL/L (3.5-5.1); SODIUM 141 MMOL/L (135-145); TOTAL CARBON DIOXIDE 30.3 MMOL/L (24-32); TOTAL PROTEIN 5.8 G/DL (6.4-8.2); eGFR 76 ML/MIN
[2020-07-06 06:55] LABS: BLOOD UREA NITROGEN 3 MG/DL (7-18)
[2020-07-06 07:33] LABS: LARGE PLATELETS FEW; PLATELET ESTIMATE DECREASED
[2020-07-06] MEDS: sertraline 50mg tablet PO SCH (07:49)
[2020-07-06] MEDS: folic acid 1mg tablet PO SCH (07:49)
[2020-07-06] MEDS: thiamine 100mg tablet PO SCH (07:49)
[2020-07-06] MEDS: atorvastatin 20mg tablet PO SCH (07:49)
[2020-07-06] MEDS: sertraline 25mg tablet PO SCH (07:49)
[2020-07-06] MEDS: HYDROcodone/acetaminophen 10/325mg tab PO PRN (07:49)
[2020-07-06] MEDS: pantoprazole 40mg Tablet.DR PO SCH ×2 (07:50→19:50)
[2020-07-06] MEDS: multivitamins, therapeutics tablet PO SCH (07:50)
[2020-07-06] MEDS: nicotine 14mg patch - 24hr TD SCH (07:50)
[2020-07-06] MEDS: gabapentin 300mg capsule PO SCH ×3 (07:50→21:00)
[2020-07-06 08:00] VITALS: BP 134/73
[2020-07-06] MEDS: K and/or MAG REPLACEMENT MC SCH ×2 (08:00→20:00)
[2020-07-06 11:00] VITALS: BP 96/57
[2020-07-06] MEDS: ketorolac trometh. 30mg/ml inj. IV SCH ×2 (13:36→19:50)
[2020-07-06 18:00] VITALS: BP 120/79
--- NOTE | 2020-07-06 18:32 | NUR ---
Problems reprioritized. Patient report given, questions answered & plan of care reviewed with ROSALIE Arizmendi.
[2020-07-06] MEDS: Melatonin 3mg tablet PO SCH (21:00)
[2020-07-07] VITALS: BP 123/76
[2020-07-07] MEDS: HYDROcodone/acetaminophen 10/325mg tab PO PRN ×2 (02:07→09:16)
[2020-07-07] MEDS: ketorolac trometh. 30mg/ml inj. IV SCH ×2 (02:45→09:14)
--- NOTE | 2020-07-07 06:52 | NUR ---
Patient in room [facility]. I have received report from ROSALIE MURPHY and had the opportunity to ask questions and assume patient care.
[2020-07-07 06:57] LABS: BASOPHILS % (AUTO) 0.5 % (0-1); EOSINOPHILS # (AUTO) 0.1 X10'3 (0-0.9); EOSINOPHILS % (AUTO) 1.7 % (0-6); HEMATOCRIT 35.5 % (35.0-45.0); LYMPHOCYTES % (AUTO) 18.8 % (21-51); MEAN CORPUSCULAR HEMOGLOBIN 32.6 PG (27.0-31.0); MEAN CORPUSCULAR HGB CONC 33.9 g/dL (33.0-36.5); MEAN CORPUSCULAR VOLUME 96.2 FL (78-98); MEAN PLATELET VOLUME 9.7 FL (7.4-10.4); MONOCYTES # (AUTO) 0.6 X10'3 (0-0.9); MONOCYTES % (AUTO) 10.7 % (2-12); NEUTROPHILS # (AUTO) 3.7 X10'3 (1.8-7.7); NEUTROPHILS % (AUTO) 68.3 % (42-75); PLATELET COUNT 97 X10'3 (140-440); RED BLOOD COUNT 3.69 X10'6 (4.20-5.60); RED CELL DISTRIBUTION WIDTH 13.7 % (11.5-14.5); WHITE BLOOD COUNT 5.5 X10'3 (4.5-11.0)
[2020-07-07 07:00] VITALS: BP 130/81
[2020-07-07 07:18] LABS: ALANINE AMINOTRANSFERASE 36 U/L (12-78); ALBUMIN 2.6 G/DL (3.4-5.0); ALBUMIN/GLOBULIN RATIO 0.9 (1.1-1.5); ALKALINE PHOSPHATASE 44 IU/L (46-116); ANION GAP 6 (8-16); ASPARTATE AMINO TRANSFERASE 22 U/L (10-37); BILIRUBIN,TOTAL 0.7 MG/DL (0.1-1.0); CHLORIDE 107 MMOL/L (99-107); CREATININE 0.68 MG/DL (0.40-0.90); GLUCOSE 91 MG/DL (70-104); MAGNESIUM 1.8 MG/DL (1.5-2.4); PHOSPHORUS 2.6 MG/DL (2.3-4.5); POTASSIUM 3.9 MMOL/L (3.5-5.1); SODIUM 142 MMOL/L (135-145); TOTAL CARBON DIOXIDE 28.8 MMOL/L (24-32); TOTAL PROTEIN 5.6 G/DL (6.4-8.2); eGFR 90 ML/MIN
[2020-07-07 07:26] LABS: BLOOD UREA NITROGEN 4 MG/DL (7-18); BUN/CREATININE RATIO 5.9 (6.6-38.0)
[2020-07-07] MEDS: K and/or MAG REPLACEMENT MC SCH (08:00)
[2020-07-07] MEDS: sertraline 50mg tablet PO SCH (09:15)
[2020-07-07] MEDS: thiamine 100mg tablet PO SCH (09:15)
[2020-07-07] MEDS: sertraline 25mg tablet PO SCH (09:15)
[2020-07-07] MEDS: nicotine 14mg patch - 24hr TD SCH (09:15)
[2020-07-07] MEDS: gabapentin 300mg capsule PO SCH ×2 (09:16→13:00)
[2020-07-07] MEDS: folic acid 1mg tablet PO SCH (09:16)
[2020-07-07] MEDS: atorvastatin 20mg tablet PO SCH (09:16)
[2020-07-07] MEDS: pantoprazole 40mg Tablet.DR PO SCH (09:16)
[2020-07-07] MEDS: multivitamins, therapeutics tablet PO SCH (09:16)
[2020-07-07] MEDS ORDERED: HYDR-3964 PO (11:55)
[2020-07-07 12:00] VITALS: BP 132/85
--- NOTE | 2020-07-07 13:18 | NUR ---
PATIENT STABLE AND APPROPRIATE FOR DISCHARGE, IV TAKEN OUT, SCRIPT GIVEN TO PATIENT, EDUCATION GIVEN, ALL BELONGINGS SENT WITH PATIENT, PATIENT TAKEN TO LOBBY BY WHEELCHAIR TO AN AWAITING CAR WHERE FAMILY MEMBER WILL TAKE PATIENT HOME
== END 2020-07-07 13:33 | disposition home or self-care (01) | DRG 231 ==
LOC: ER 10:04 → ED HOLD 11:44 → SUR 3N 15:26
PROVIDERS: ADMIT Family Medicine; ATTEND Family Medicine
PROC: 8E0W4CZ Robotic Assisted Procedure of Trunk Region, Percutaneous Endoscopic Approach (ICD-10-PCS; 2020-07-04)
PROC: B4151ZZ Fluoroscopy of Inferior Mesenteric Artery using Low Osmolar Contrast (ICD-10-PCS; 2020-07-04)
PROC: B4141ZZ Fluoroscopy of Superior Mesenteric Artery using Low Osmolar Contrast (ICD-10-PCS; 2020-07-04)
PROC: 0DBN4ZZ Excision of Sigmoid Colon, Percutaneous Endoscopic Approach (ICD-10-PCS; principal; 2020-07-04 15:33)
DX: K57.32 Diverticulitis of large intestine without perforation or abscess without bleeding (principal); E78.5 Hyperlipidemia, unspecified; F10.230 Alcohol dependence with withdrawal, uncomplicated; F32.9 Major depressive disorder, single episode, unspecified; K29.20 Alcoholic gastritis without bleeding; K85.90 Acute pancreatitis without necrosis or infection, unspecified; K92.0 Hematemesis; F17.210 Nicotine dependence, cigarettes, uncomplicated; Z20.822 Contact with and (suspected) exposure to COVID-19; D69.59 Other secondary thrombocytopenia; K21.9 Gastro-esophageal reflux disease without esophagitis; M81.0 Age-related osteoporosis without current pathological fracture; Z82.0 Family history of epilepsy and other diseases of the nervous system; Z82.49 Family history of ischemic heart disease and other diseases of the circulatory system; Z82.5 Family history of asthma and other chronic lower respiratory diseases; Z83.3 Family history of diabetes mellitus; Z98.51 Tubal ligation status; Z79.899 Other long term (current) drug therapy; Z79.82 Long term (current) use of aspirin; Z88.8 Allergy status to other drugs, medicaments and biological substances
CPT/HCPCS: 36415; 80053; 80320; 82150; 82948; 83735; 84100; 85007; 85008; 85025; 85610; 85730; 86885; 86900; 86901; 87081; 87635; 96361; 96374; 96375; 99285; A4215; A4618; C1758; C9113; G0378; J0694; J1100; J1885; J2001; J2250; J2270; J2405; J2704; J2710; J3010; J3411; J3480; J3490; J7030; J7060; J7120

== ENCOUNTER 2021-11-11 18:11 | Emergency (ER) | payer MEDICAID ==
[~2021-11-11] VITALS: Ht 170.2 cm; Wt 56.8 kg
[~2021-11-11 18:11] MED LIST changes: +ATOR20TA66 PO; +HYDR-3964 PO
[2021-11-11] MEDS ORDERED: chlordiazePOXIDE 25mg capsule PO ONE ×2 (19:10→19:20)
[2021-11-11 19:42] VITALS: BP 137/87
== END 2021-11-11 19:46 | disposition home or self-care (01) ==
LOC: ER 18:12
DX: F10.20 Alcohol dependence, uncomplicated (principal); K21.9 Gastro-esophageal reflux disease without esophagitis; Z87.440 Personal history of urinary (tract) infections; Z87.81 Personal history of (healed) traumatic fracture; M81.0 Age-related osteoporosis without current pathological fracture; Z86.19 Personal history of other infectious and parasitic diseases; Z87.19 Personal history of other diseases of the digestive system; Z72.89 Other problems related to lifestyle; Z88.8 Allergy status to other drugs, medicaments and biological substances; Z79.899 Other long term (current) drug therapy; Y90.9 Presence of alcohol in blood, level not specified
CPT/HCPCS: 99283